=== PATIENT | male | born 1985 | race Two or more races ===

== ENCOUNTER 2019-11-26 11:40 | Outpatient (CLI) | payer OTHER | END 2019-11-26 11:58 | disposition home or self-care (01) | LOC: RAD 11:40 → TOM 11:40 → RAD 11:58 | PROVIDERS: ATTEND General Practice | DX: R60.0 Localized edema (principal); K57.90 Diverticulosis of intestine, part unspecified, without perforation or abscess without bleeding; K92.1 Melena ==

== ENCOUNTER 2019-11-27 13:00 | Outpatient (CLI) | payer OTHER | END 2019-11-27 13:11 | disposition home or self-care (01) | LOC: NUCLEAR 13:00 | PROVIDERS: ATTEND General Practice | DX: R60.0 Localized edema (principal); I73.9 Peripheral vascular disease, unspecified ==

== ENCOUNTER 2019-11-29 12:58 | Outpatient (CLI) | payer OTHER | END 2019-11-29 13:18 | disposition home or self-care (01) | LOC: NUCLEAR 12:58 | PROVIDERS: ATTEND General Practice | DX: I73.9 Peripheral vascular disease, unspecified (principal); R60.0 Localized edema ==

== ENCOUNTER 2020-10-08 05:29 | Emergency (ER) | payer OTHER ==
[~2020-10-08] VITALS: Ht 182.9 cm; Wt 124.7 kg
[2020-10-08] MEDS ORDERED: ZESTRIL10 M1 (06:23)
[2020-10-08] MEDS ORDERED: ORPHENADRINE C100 MG PO (09:11)
[2020-10-08] MEDS ORDERED: KETO10TA2 PO (09:11)
== END 2020-10-08 09:22 | disposition home or self-care (01) ==
LOC: ER 05:29
DX: R07.89 Other chest pain (principal); M94.0 Chondrocostal junction syndrome [Tietze]

== ENCOUNTER 2021-06-30 12:33 | Outpatient (CLI) | payer OTHER ==
[~2021-06-30 12:33] MED LIST: KETO10TA2 PO; ORPHENADRINE C100 MG PO; ZESTRIL10 M1
== END 2021-06-30 12:46 | disposition home or self-care (01) ==
LOC: MRI 12:33
PROVIDERS: ATTEND General Practice
DX: M25.561 Pain in right knee (principal)
CPT/HCPCS: 73718

== ENCOUNTER 2021-09-29 08:44 | Outpatient (CLI) | payer OTHER | END 2021-09-29 08:47 | disposition home or self-care (01) | LOC: MRI 08:44 | PROVIDERS: ATTEND Orthopaedic Surgery Sports Medicine | DX: M25.561 Pain in right knee (principal) | CPT/HCPCS: 73718 ==